=== PATIENT | male | born 1935 | race Caucasian/White ===

== ENCOUNTER 2018-09-09 20:26 | Emergency (ER) | payer MEDICARE ==
--- NOTE | 2018-09-09 22:08 | ER Document Report ---
ED Medical Screen (RME) - General Chief Complaint: Post Surgical Bleeding Stated Complaint: SKIN PROBLEM Time Seen by Provider: 09/09/18 22:04 Mode of Arrival: Ambulatory Information source: Patient Notes: 83-year-old male presented to ED for complaint of bleeding from his biopsy site to his scalp. States the biopsy was done today on the growth on his head and it is not stopped bleeding. He states he is on a generic for Plavix. There is a small trickle of blood at this time. There is no active bleeding. Patient will be seen in the emergency room for further evaluation. I have greeted and performed a rapid initial assessment of this patient. A comprehensive ED assessment and evaluation of the patient, analysis of test results and completion of medical decision making process will be conducted by an additional ED providers. TRAVEL OUTSIDE OF THE [place] IN LAST 30 DAYS: No Past Medical History - Social History Chew tobacco use (# tins/day): No Renal/ Medical History: Denies: Hx Peritoneal Dialysis Physical Exam - Vital signs Vitals: Temp Pulse Resp BP Pulse Ox 98.9 F 72 18 182/92 H 96 09/09/18 20:31 09/09/18 20:31 09/09/18 20:31 09/09/18 20:31 09/09/18 20:31 Course - Vital Signs Vital signs: Temp Pulse Resp BP Pulse Ox 98.9 F 72 18 182/92 H 96 09/09/18 20:31 09/09/18 20:31 09/09/18 20:31 09/09/18 20:31 09/09/18 20:31 Doctor's Discharge - Discharge Referrals: JIMMIE NULL MD [Primary Care Provider] - Follow up as needed
[2018-09-09 22:39] LABS: ABSOLUTE EOSINOPHILS # (AUTO) 0.4 10^3/uL (0.0-0.6); ABSOLUTE LYMPHOCYTES (AUTO) 1.8 10^3/uL (0.5-4.7); ABSOLUTE MONOCYTES (AUTO) 1.1 10^3/uL (0.1-1.4); ABSOLUTE NEUT (AUTO) 5.2 10^3/uL (1.7-8.2); BASOPHILS % (AUTO) 0.4 % (0-2); EOSINOPHILS % (AUTO) 4.2 % (0-6); HEMOGLOBIN 14.3 g/dL (13.5-17.0); LYMPHOCYTES % (AUTO) 21.3 % (13-45); MEAN CORPUSCULAR HEMOGLOBIN 31.5 pg (27.0-33.4); MEAN CORPUSCULAR HGB CONC 33.9 g/dL (32.0-36.0); MEAN CORPUSCULAR VOLUME 93 fl (80-97); MONOCYTES % (AUTO) 13.3 % (3-13); PLATELET COUNT 202 10^3/uL (150-450); RED BLOOD COUNT 4.52 10^6/uL (4.35-5.55); RED CELL DISTRIBUTION WIDTH 13.9 % (11.5-14.0); SEGMENTED NEUTROPHILS % (AUTO) 60.8 % (42-78); TOTAL CELLS COUNTED % (AUTO) 100 %; WHITE BLOOD COUNT 8.5 10^3/uL (4.0-10.5)
--- NOTE | 2018-09-10 00:25 | ER Document Report ---
ED General - General Chief Complaint: Post Surgical Bleeding Stated Complaint: SKIN PROBLEM Time Seen by Provider: 09/09/18 22:04 Mode of Arrival: Ambulatory Notes: Patient is an 83-year-old male currently anticoagulated with clopidogrel who presents with bleeding from a skin biopsy that was done earlier today. This biopsy was done on a growth on his right forehead. The patient states that he has had some mild, oozing bleeding from the area. He tried to control the bleeding with direct pressure unsuccessfully. Nothing triggered or worsen the bleeding. He has not contacted his doctor regarding these concerns. He denies any significant pain to the area, drainage of purulent material, or any additional concerns. No history of similar symptoms in the past. TRAVEL OUTSIDE OF THE [place] IN LAST 30 DAYS: No Past Medical History - General Information source: Patient - Social History Smoking Status: Never Smoker Chew tobacco use (# tins/day): No Frequency of alcohol use: None Drug Abuse: None Lives with: Spouse/Significant other Family History: Reviewed & Not Pertinent Patient has suicidal ideation: No Patient has homicidal ideation: No - Past Medical History Cardiac Medical History: Reports: Hx Hypercholesterolemia, Hx Hypertension Renal/ Medical History: Denies: Hx Peritoneal Dialysis Review of Systems - Review of Systems Notes: Constitutional: Negative for fever. HENT: Negative for sore throat. Eyes: Negative for visual changes. Cardiovascular: Negative for chest pain. Respiratory: Negative for shortness of breath. Gastrointestinal: Negative for abdominal pain, vomiting or diarrhea. Genitourinary: Negative for dysuria. Musculoskeletal: Negative for back pain. Skin: Positive for bleeding from the right forehead wound Neurological: Negative for headaches, weakness or numbness. 10 point ROS negative except as marked above and in HPI. Physical Exam - Vital signs Vitals: Temp Pulse Resp BP Pulse Ox 98.9 F 72 18 182/92 H 96 09/09/18 20:31 09/09/18 20:31 09/09/18 20:31 09/09/18 20:31 09/09/18 20:31 Interpretation: Hypertensive Notes: PHYSICAL EXAMINATION: GENERAL: Well-appearing, well-nourished and in no acute distress. HEAD: Atraumatic, normocephalic. EYES: P sclera anicteric, conjunctiva are normal. ENT: nares patent, oropharynx clear without exudates. Moist mucous membranes. NECK: Normal range of motion, supple without lymphadenopathy LUNGS: Breath sounds clear to auscultation bilaterally and equal. No wheezes rales or rhonchi. HEART: Regular rate and rhythm without murmurs ABDOMEN: Soft, nontender, normoactive bowel sounds. No guarding, no rebound. No masses appreciated. EXTREMITIES: Normal range of motion, no pitting or edema. No cyanosis. NEUROLOGICAL: No focal neurological deficits. Moves all extremities spontaneously and on command. PSYCH: Normal mood, normal affect. SKIN: Warm, Dry, normal turgor, scant oozing from a punctate area of a closed incision at the base of a growth on the right forehead Course - Re-evaluation Re-evalutation: 09/10/18 00:20 Patient presents with a small amount of bleeding from a biopsied skin lesion on the right forehead. Bleeding effectively undetectable at time of exam. No significant blood on dressing. Hemoglobin normal. I have applied a new dressing with quick clot on it, advised the patient to follow-up as an outpatient, return for worsening bleeding or any additional concerns. He is in agreement, happy with care. - Vital Signs Vital signs: Temp Pulse Resp BP Pulse Ox 98.9 F 72 18 182/92 H 96 09/09/18 20:31 09/09/18 20:31 09/09/18 20:31 09/09/18 20:31 09/09/18 20:31 - Laboratory Result Diagrams: 09/09/18 22:20 Laboratory results interpreted by me: 09/09/18 22:20 Monocytes % 13.3 H Discharge - Discharge Clinical Impression: Postoperative bleeding from incision Condition: Good Disposition: HOME, SELF-CARE Additional Instructions: Return if you continue to bleed through the dressing, develop a fever, have significant pain to the area, or have any additional symptoms that are worrisome to you. Referrals: JIMMIE NULL MD [NO LOCAL MD] - Follow up as needed
[2018-09-10 01:55] VITALS: BP 171/89
== END 2018-09-10 02:11 | disposition home or self-care (01) ==
LOC: ER 20:26
DX: L76.22 Postprocedural hemorrhage of skin and subcutaneous tissue following other procedure (principal); E78.00 Pure hypercholesterolemia, unspecified; I10 Essential (primary) hypertension
CPT/HCPCS: 36415; 85025; 99283